=== PATIENT | female | born 1960 | race Caucasian/White ===

== ENCOUNTER 2018-01-06 13:04 | Day surgery (SDC) | payer BC ==
[~2018-01-06 13:04] MED LIST: Buffered Lidocaine 0.9% SYRIN* 5 ML/SYR SYRINGE INTRADERM ONE
[2018-01-06] MEDS ORDERED: ceFAZolin 2 GM PREMIX (*) 2 GM/50 ML BAG IVPB ONE (14:01)
[2018-01-06] MEDS ORDERED: Propofol* 10 MG/ML 20 ML BTL IV PUSH ONE ×3 (14:42→18:00)
[2018-01-06] MEDS ORDERED: Midazolam* 1 MG/ML 2 ML VIAL (2 MG) ONE (14:43)
[2018-01-06] MEDS ORDERED: fentaNYL* 50 MCG/ML 5 ML VIAL (250 MCG VIAL) ONE (14:43)
[2018-01-06] MEDS ORDERED: Naloxone* 0.4 MG/ML 1 ML VIAL IV PRN (15:06)
[2018-01-06] MEDS ORDERED: Bupivacaine 0.25% SDV* 30 ML ONE (15:07)
[2018-01-06 18:38] VITALS: BP 108/72
--- NOTE | 2018-01-07 07:36 | RAD ---
INDICATION: Left thumb surgery. COMPARISON: Comparison is made with a prior x-ray study of the left wrist from January 03, 2018. TECHNIQUE: 10 seconds of intermittent fluoroscopic guidance were provided and 2 spot films of the left thumb were obtained in the operating room. FINDINGS: The films demonstrate a linear bony defect which projects over the proximal and distal phalanges most likely from a prior K wire. There are 2 surgical anchors present at the base of the distal phalanx. The bones are in normal alignment. IMPRESSION: INTRAOPERATIVE CONTROL FILMS. CPT II Codes: G9500
--- NOTE | 2018-01-07 13:38 | OP ---
DATE OF OPERATION: 01/06/18 - [facility] DATE OF : 58 SURGEON: Eduardo Smith MD [employer] WORKER: JOANN Larry ANESTHESIOLOGIST: Dr. Lee. ANESTHESIA: Local MAC. PRE-OP DIAGNOSIS: Right thumb displaced distal phalanx dorsal rim avulsion articular fracture. POST-OP DIAGNOSIS: Right thumb displaced distal phalanx dorsal rim avulsion articular fracture. OPERATIVE PROCEDURE: Open reduction and internal fixation, right displaced distal phalanx articular dorsal rim avulsion fracture. INDICATION: Rosana had a fall off the horse. She fractured the left wrist. She had obtained a CT scan this morning of this. She also injured the right thumb, this was very displaced. Very largely displaced bony mallet type fracture. It was about a centimeter displaced. She had a significant extension lag. I talked to her about her options. She wanted to proceed with repair of the fracture to see if she could get better extension of her thumb. ESTIMATED BLOOD LOSS: 2 mL. COMPLICATIONS: None. FINDINGS: As expected. DESCRIPTION OF PROCEDURE: Rosana was seen in the preoperative holding area. The correct side, site and procedure were identified. We came back to the operating room. The thumb was anesthetized. The arm was prepped and draped in usual fashion. A time-out was performed. The arm was exsanguinated and a tourniquet inflated to 250 mmHg. I made an H- shaped incision over the dorsum of the right thumb IP joint. Dissection was carried down. The fracture was noted. The tendon was quite retracted. I used a curette and a suction and knife, and extended up to the interposing soft tissue. This mobilized the tendon and extended the thumb and reduced the fracture back into its position. There were multiple pieces, too small for any K-wires. I did try to place one 0.8 mm K-wire in one of the larger fragments and . I therefore placed 2 micro Mitek suture anchors in the footprint of the fracture. Whipstitch was performed using the sutures off of anchors and these were then sewn down re- apposing the bone to the footprint. This was secured with three [id number] 4-0 Ethibond sutures. After this, the fracture was very nicely aligned. I did attempt to place one 0.045 K-wire across the joint to hold the thumb in extension but it just wanted to displace the joint, so I decided to leave it out and everything was looking good with the fracture. I irrigated out the wound. Skin was closed with 4- 0 nylon suture. The wound was dressed with Xeroform, 4x4s, sterile Webril, and then short arm thumb spica splint was applied with the IP joint in full extension. She was then woken up and taken to recovery room in stable condition. [id number]/[facility] #: [id number] NEETA
== END 2018-01-06 19:03 | disposition home or self-care (01) ==
LOC: OR 13:04
PROVIDERS: ATTEND Orthopaedic Surgery Hand Surgery
DX: S62.521A Displaced fracture of distal phalanx of right thumb, initial encounter for closed fracture (principal); Z79.82 Long term (current) use of aspirin; V80.010A Animal-rider injured by fall from or being thrown from horse in noncollision accident, initial encounter; Y93.52 Activity, horseback riding; Y92.9 Unspecified place or not applicable; F32.9 Major depressive disorder, single episode, unspecified; I25.3 Aneurysm of heart; Z87.891 Personal history of nicotine dependence
CPT/HCPCS: 76000; J0690; J2250; J2704; J3010